=== PATIENT | female | born 1990 | race African-American/Black ===

== ENCOUNTER 2023-12-05 18:34 | Inpatient (IN) | payer OTHER ==
[~2023-12-05] VITALS: Ht 162.6 cm; Wt 131.1 kg
[2023-12-05 20:17] LABS: BASOPHILS % 1.1 % (0.0-2.0); EOSINOPHILS % 0.7 % (0.0-5.0); HEMATOCRIT. 45.6 % (36.0-48.0); HEMOGLOBIN. 14.4 g/dL (12.0-16.0); LYMPHOCYTES % 24.7 % (20.0-50.0); MEAN CORPUSCULAR HEMOGLOBIN 30.7 pg (28.0-32.0); MEAN CORPUSCULAR HGB CONC 31.7 g/dL (31.0-37.0); MEAN CORPUSCULAR VOLUME 96.8 fL (81.0-99.0); MEAN PLATELET VOLUME 10.5 fl (7.4-10.4); MONOCYTES % 6.6 % (2.0-8.0); NEUTROPHILS % 66.9 % (40.0-76.0); PLATELET 263 x1000/uL (130-400); RED BLOOD CELL COUNT 4.71 mill/uL (4.2-5.4); RED CELL DISTRIBUTION WIDTH 14.5 % (11.6-14.6); WHITE BLOOD COUNT 10.9 x1000/uL (4.5-11.0)
[2023-12-05 20:18] LABS: POTASSIUM 4.3 mEq/L (3.5-5.1)
[2023-12-05 20:19] LABS: CALCIUM 9.3 mg/dL (8.7-10.4)
[2023-12-05 20:24] LABS: CREATININE 1.5 mg/dL (0.6-1.0)
[2023-12-05 20:35] LABS: HCG SCREEN NEGATIVE
[2023-12-05 20:36] LABS: BETA HYDROXYBUTYRATE 6.4 mMol/L (0.0-0.3)
[2023-12-05] MEDS: SODIUM CHLORIDE 0.9% 1,000 ML IV ONE ×2 (21:14→22:00)
[2023-12-05 21:53] LABS: BG BASE EXCESS -12.6 mmol/L (-2.0-3.0); BG CARBOXYHEMOGLOBIN 0.4 % (0.5-1.5); BG DEOXYHEMOGLOBIN 2.5 % (0.0-5.0); BG FRACTION INSPIRED OXYGEN 21; BG HCO3 ACT 12.4 mmol/L (21.0-28.0); BG OXYGEN SATURATION 97.5 % (94.0-98.0); BG OXYHEMOGLOBIN 97.1 % (94.0-98.0); BG PCO2 27.2 mmHg (32.0-45.0); BG PH 7.278 (7.350-7.450); BG PO2 97.7 mmHg (83.0-108.0); BG SAMPLE SITE LEFT RADIAL; BG TOTAL HEMOGLOBIN 14.2 g/dL (12.0-16.0); BG VENT MODE ROOM AIR
[2023-12-05] MEDS ORDERED: INSULIN REGULAR 100U/100ML PMX 100 ML IV SCH (22:00)
[2023-12-05] MEDS ORDERED: INSULIN REGULAR (DRIP) 100 UNITS in SODIUM CHLORIDE 0.9% 99 ML IV SCH (22:30)
[2023-12-05] MEDS ORDERED: DEXTROSE 50% WATER 50ML SYRINGE IV PRN (22:30)
[2023-12-05] MEDS: BLOOD SUGAR DIAGNOSTIC STRIP TEST SCH (22:30)
[2023-12-05] MEDS ORDERED: BLOOD SUGAR DIAGNOSTIC STRIP TEST PRN (22:30)
[2023-12-05 23:35] LABS: BASOPHILS % 0.8 % (0.0-2.0); EOSINOPHILS % 0.7 % (0.0-5.0); HEMOGLOBIN. 14.4 g/dL (12.0-16.0); LYMPHOCYTES % 23.4 % (20.0-50.0); MEAN CORPUSCULAR HEMOGLOBIN 30.6 pg (28.0-32.0); MEAN CORPUSCULAR HGB CONC 31.3 g/dL (31.0-37.0); MEAN CORPUSCULAR VOLUME 97.8 fL (81.0-99.0); MEAN PLATELET VOLUME 10.2 fl (7.4-10.4); MONOCYTES % 7.5 % (2.0-8.0); NEUTROPHILS % 67.6 % (40.0-76.0); PLATELET 237 x1000/uL (130-400); RED CELL DISTRIBUTION WIDTH 14.7 % (11.6-14.6); WHITE BLOOD COUNT 11.4 x1000/uL (4.5-11.0)
[2023-12-05 23:44] LABS: CLARITY URINE CLEAR (CLEAR); COLOR URINE YELLOW (YELLOW); GLUCOSE URINE 3+ (NEGATIVE); KETONES URINE 4+ (NEGATIVE); LEUKOCYTE ESTERASE URINE NEGATIVE (NEGATIVE); NITRITE URINE NEGATIVE (NEGATIVE); OCCULT BLOOD URINE 3+ (NEGATIVE); PROTEIN URINE TRACE (NEGATIVE); SPECIFIC GRAVITY URINE 1.035 (1.005-1.030); UROBILINOGEN URINE 0.2 E.U./dL (0.2-1.0)
[2023-12-05] MEDS: INSULIN REGULAR 100U/100ML PMX 100 ML IV SCH (23:44)
[2023-12-06] MEDS: DEXT 5%/0.9% NACL 1,000 ML IV SCH (02:30)
[2023-12-06 03:07] LABS: BACTERIA URINE NONE SEEN; SQUAMOUS EPITHELIAL CELL URINE NONE SEEN /lpf (RARE/1+); WBC URINE NONE SEEN /hpf (0-2)
[2023-12-06 03:52] LABS: CHLORIDE 109 mEq/L (98-107); POTASSIUM 3.4 mEq/L (3.5-5.1); SODIUM 139 mEq/L (136-145)
[2023-12-06 03:53] LABS: CALCIUM 8.9 mg/dL (8.7-10.4); CARBON DIOXIDE 17 mEq/L (21-32)
[2023-12-06 03:58] LABS: CREATININE 1.1 mg/dL (0.6-1.0); GLUCOSE 210 mg/dL (70-105); UREA NITROGEN BLOOD 5 mg/dL (9-23)
[2023-12-06 04:00] LABS: PHOSPHORUS 1.9 mg/dL (2.5-4.9)
[2023-12-06 09:17] LABS: CHLORIDE 108 mEq/L (98-107); POTASSIUM 3.3 mEq/L (3.5-5.1); SODIUM 136 mEq/L (136-145)
[2023-12-06 09:18] LABS: CALCIUM 8.2 mg/dL (8.7-10.4); CARBON DIOXIDE 19 mEq/L (21-32)
[2023-12-06 09:23] LABS: GLUCOSE 245 mg/dL (70-105)
[2023-12-06 09:25] LABS: ALANINE AMINOTRANSFERASE 101 IU/L (10-49); ALBUMIN 3.8 g/dL (3.2-4.8); ASPARTATE AMINOTRANSFERASE 39 IU/L (<34); BILIRUBIN TOTAL 0.6 mg/dL (0.1-1.0); PROTEIN TOTAL 6.5 g/dL (6.0-8.3)
[2023-12-06 09:42] LABS: UREA NITROGEN BLOOD < 5 mg/dL (9-23)
[2023-12-06] MEDS: KCL 20MEQ/100ML PREMIX 100 ML IV PRN (10:20)
[2023-12-06] MEDS ORDERED: ACETAMINOPHEN 325MG TABLET PO PRN (12:15)
[2023-12-06] MEDS ORDERED: DIPHENHYDRAMINE 50MG/ML VIAL IV PRN (12:15)
[2023-12-06] MEDS ORDERED: ONDANSETRON HCL 4MG/2ML INJ IV PRN (12:15)
[2023-12-06] MEDS ORDERED: IPRATROPIUM/ALBUTEROL 0.5-3(2.5)MG/3ML NEB HHN PRN (12:15)
[2023-12-06 14:01] LABS: CHLORIDE 109 mEq/L (98-107); POTASSIUM 3.3 mEq/L (3.5-5.1); SODIUM 137 mEq/L (136-145)
[2023-12-06 14:02] LABS: CALCIUM 7.9 mg/dL (8.7-10.4); CARBON DIOXIDE 22 mEq/L (21-32)
[2023-12-06 14:07] LABS: CREATININE 0.9 mg/dL (0.6-1.0); GLUCOSE 235 mg/dL (70-105)
[2023-12-06 14:19] LABS: UREA NITROGEN BLOOD < 5 mg/dL (9-23)
[2023-12-06] MEDS: INSULIN GLARGINE 100 UNITS/ML SUBCUT NR (16:38)
[2023-12-06] MEDS: BLOOD SUGAR DIAGNOSTIC STRIP TEST SCH (17:09)
[2023-12-06] MEDS: INSULIN LISPRO 100 UNITS/ML SUBCUT SCH (18:04)
[2023-12-06 20:00] VITALS: BP 129/73; PULSE 78; RESP 18; TEMP 36.61404; O2SAT 100
[2023-12-06 23:35] VITALS: BP 127/70; PULSE 84; RESP 18; TEMP 36.6404
[2023-12-07] VITALS: BP 114/75; PULSE 85; RESP 19; TEMP 36.72516; O2SAT 100
[2023-12-07] MEDS ORDERED: METF-907 PO (03:04)
[2023-12-07] MEDS ORDERED: FURO20TA4 PO (03:04)
[2023-12-07 04:00] VITALS: BP 111/58; PULSE 90; RESP 19; TEMP 36.3918; O2SAT 100
[2023-12-07 07:08] LABS: BASOPHILS % 0.5 % (0.0-2.0); EOSINOPHILS % 0.8 % (0.0-5.0); HEMATOCRIT. 45.5 % (36.0-48.0); HEMOGLOBIN. 14.5 g/dL (12.0-16.0); LYMPHOCYTES % 28.2 % (20.0-50.0); MEAN CORPUSCULAR HEMOGLOBIN 31.1 pg (28.0-32.0); MEAN CORPUSCULAR HGB CONC 31.7 g/dL (31.0-37.0); MEAN CORPUSCULAR VOLUME 98.1 fL (81.0-99.0); MEAN PLATELET VOLUME 10.8 fl (7.4-10.4); MONOCYTES % 5.6 % (2.0-8.0); NEUTROPHILS % 64.9 % (40.0-76.0); PLATELET 234 x1000/uL (130-400); RED BLOOD CELL COUNT 4.64 mill/uL (4.2-5.4); RED CELL DISTRIBUTION WIDTH 14.7 % (11.6-14.6); WHITE BLOOD COUNT 9.9 x1000/uL (4.5-11.0)
[2023-12-07 07:30] LABS: CALCIUM 9.2 mg/dL (8.7-10.4); CARBON DIOXIDE 17 mEq/L (21-32)
[2023-12-07 07:35] LABS: GLUCOSE 373 mg/dL (70-105)
[2023-12-07 07:48] LABS: CHLORIDE 107 mEq/L (98-107); POTASSIUM 3.5 mEq/L (3.5-5.1); SODIUM 137 mEq/L (136-145)
[2023-12-07 08:00] VITALS: BP 123/78; PULSE 60; RESP 15; TEMP 36.55848; O2SAT 100
[2023-12-07 08:10] LABS: UREA NITROGEN BLOOD < 5 mg/dL (9-23)
[2023-12-07] MEDS: INSULIN GLARGINE 100 UNITS/ML SUBCUT SCH (10:00)
[2023-12-07 12:00] VITALS: BP 110/71; PULSE 78; RESP 15; TEMP 36.50292; O2SAT 98
[2023-12-07] MEDS ORDERED: LANTUSUD SUBCUT (14:24)
[2023-12-07] MEDS ORDERED: INSLIS SUBCUT (14:24)
[2023-12-07 14:50] VITALS: BP 110/71; PULSE 78; TEMP 97.7; O2SAT 98
[2023-12-07] MEDS: INSULIN LISPRO 100 UNITS/ML SUBCUT NR (19:25)
[2023-12-07 20:00] VITALS: BP 125/73; PULSE 93; RESP 18; TEMP 36.22512; O2SAT 100
[2023-12-08] VITALS: BP 106/62; PULSE 91; RESP 18; TEMP 36.114; O2SAT 98
[2023-12-08 06:00] VITALS: BP 109/72; PULSE 84; RESP 18; TEMP 36.16956; O2SAT 99
[2023-12-08 08:00] VITALS: BP 119/74; PULSE 82; RESP 18; TEMP 36.3918; O2SAT 99
[2023-12-08] MEDS ORDERED: LANTUSUD SUBCUT (11:39)
[2023-12-08 12:00] VITALS: BP 151/85; PULSE 89; RESP 18; TEMP 36.28068; O2SAT 100
[2023-12-08 13:02] VITALS: BP 122/66; PULSE 89; TEMP 97.3; O2SAT 100
== END 2023-12-08 16:51 | disposition home or self-care (01) | DRG 639 ==
LOC: ER 18:34 → EDBEDREQSVC 22:43 → 5WST 23:19 → EDBEDREQ 23:45 → EDBEDREQSVC 12-06 16:51 → 7EST 12-06 19:05
PROVIDERS: ADMIT Internal Medicine; ATTEND Internal Medicine
DX: E11.10 Type 2 diabetes mellitus with ketoacidosis without coma (principal); N93.8 Other specified abnormal uterine and vaginal bleeding; R35.0 Frequency of micturition; Z79.4 Long term (current) use of insulin
CPT/HCPCS: 36415; 36600; 71045; 76830; 76856; 80048; 80053; 81003; 82010; 82375; 82805; 82962; 83036; 83735; 83880; 84100; 84703; 85025; 93005; 93970; 99285; J1815; J3480; J7030; J7042